=== PATIENT | female | born 1990 | race Asian ===

== ENCOUNTER 2023-01-10 16:34 | Inpatient (IN) | payer OTHER, MEDICAID ==
[~2023-01-10 16:34] MED LIST: Bupivacaine 0.25% HCL 30 ML VIAL ONE; Terbutaline Sulfate 1 MG/ML VIAL ONE
[2023-01-10] MEDS ORDERED: hydrALAZINE 20 MG/ML VIAL SLOW IVP PRN (17:03)
[2023-01-10] MEDS ORDERED: NS w/ Oxytocin 30 units 500 ML IV SCH (17:15)
[2023-01-10] MEDS ORDERED: HumaLOG 300 UNITS/3 ML VIAL SC SCH (20:30)
[2023-01-10 20:50] LABS: Hemoglobin 13.3 g/dL (12.0-15.5); Mean Corpuscular Hemoglobin 30.9 pg (27.0-33.0); Mean Corpuscular Volume 90.9 fl (81.6-98.3); Mean Platelet Volume 10.4 fl (7.4-10.4); Platelet Count 229 10x3/uL (150-450); RBC Distribution Width 12.5 % (11.5-14.5); White Blood Cell (WBC) Count 10.4 10x3/uL (3.5-10.5)
[2023-01-10 21:25] LABS: HBSAg Index 0.12 S/CO (0-0.99); Hep B Surf Ag Non-Reactive S/CO (NonReactive)
[2023-01-10 21:26] LABS: Syphilis Antibody Nonreactive (Nonreactive); Syphilis Antibody Index 0.04 S/CO (<1.00 Non-Reactive)
[2023-01-10] MEDS ORDERED: Lantus 1000 UNITS/10 ML VIAL SC SCH (23:00)
[2023-01-11] MEDS ORDERED: Moisturizing Cream (Eucerin) 113 GM JAR TOP PRN ×2 (11:41→16:21)
[2023-01-11] MEDS ORDERED: Ondansetron PF 4 MG/2 ML Vial IVP PRN ×3 (11:41→18:19)
[2023-01-11] MEDS ORDERED: Acetaminophen 325 MG TAB PO PRN (11:41)
[2023-01-11] MEDS ORDERED: Naloxone HCl 0.4 mg/ml Vial IVP PRN ×4 (11:41→16:21)
[2023-01-11] MEDS ORDERED: ePHEDrine Sulfate 50 MG/10 ML VIAL SLOW IVP PRN (11:41)
[2023-01-11] MEDS ORDERED: Lactated Ringer's 500 ML IV PRN (11:41)
[2023-01-11] MEDS ORDERED: Promethazine HCl 25 MG/ML VIAL IM PRN ×2 (11:41→16:21)
[2023-01-11] MEDS ORDERED: diphenhydrAMINE 50 MG/ML VIAL IVP PRN ×2 (11:41→16:21)
[2023-01-11] MEDS ORDERED: Fentanyl 2 mcg/Bupivacaine 0.1% Cassette 100 ML EPIDURAL SCH (11:45)
[2023-01-11] MEDS ORDERED: Communication Order-Pharmacy FS SCH ×2 (11:45→16:30)
[2023-01-11] MEDS ORDERED: Terbutaline Sulfate 1 MG/ML VIAL SC SCH (12:00)
[2023-01-11] MEDS ORDERED: Fentanyl 2 mcg/Bup 0.1% Cadd 100 ML ONE (12:48)
[2023-01-11 13:37] VITALS: BMI 27.6
[2023-01-11] MEDS ORDERED: Mineral Oil ENEMA PR SCH (14:00)
[2023-01-11] MEDS ORDERED: CEFAZOLIN 2 GM VIAL ONE (14:10)
[2023-01-11] MEDS ORDERED: Misoprostol 200 MCG TAB ONE (14:33)
[2023-01-11] MEDS ORDERED: PHENYLEPHRINE-NS 100 MCG/ML 10 ML SYRINGE ONE (14:33)
[2023-01-11] MEDS ORDERED: Carboprost 250 MCG/ML AMP ONE (14:33)
[2023-01-11] MEDS ORDERED: Oxytocin 10 UNITS/ML VIAL ONE ×2 (14:33→16:11)
[2023-01-11] MEDS ORDERED: ePHEDrine Sulfate 50 MG/10 ML VIAL ONE (14:33)
[2023-01-11] MEDS ORDERED: Ondansetron PF 4 MG/2 ML Vial ONE (14:33)
[2023-01-11] MEDS ORDERED: Ketorolac Tromethamine 30 MG/ML VIAL ONE (14:34)
[2023-01-11] MEDS ORDERED: Methylergonovine 0.2 MG/ML VIAL ONE (14:34)
[2023-01-11] MEDS ORDERED: Lidocaine 2% MPF 10 ML AMP (For Epidural Use) ONE (14:34)
[2023-01-11] MEDS ORDERED: Famotidine/PF 20 mg/2ml Vial SLOW IVP PRN (14:36)
[2023-01-11] MEDS ORDERED: Bicitra 30 ML UDCUP PO PRN (14:36)
[2023-01-11] MEDS ORDERED: CEFAZOLIN 2 GM in Sodium Chloride 0.9% 100 ML IVPB SCH (14:45)
[2023-01-11] MEDS ORDERED: Phenylephrine 40 MG/NS 250 ML 250 ML ONE (14:57)
[2023-01-11] MEDS ORDERED: Morphine PF 10 MG/10 ML VIAL ONE (15:13)
[2023-01-11] MEDS ORDERED: Fentanyl 100 MCG/2 ML VIAL ONE (15:13)
[2023-01-11] MEDS ORDERED: Promethazine HCl 25 MG/ML VIAL ONE (15:18)
[2023-01-11] MEDS ORDERED: Dexamethasone 4 mg/ml Vial ONE (15:18)
[2023-01-11] MEDS ORDERED: L&D-Morphine 4 MG/ML VIAL SLOW IVP PRN (16:21)
[2023-01-11] MEDS ORDERED: Ondansetron HCl/PF 4 MG/2 ML Vial IVP PRN (16:21)
[2023-01-11] MEDS ORDERED: Naloxone HCl 0.4 mg/ml Vial IV PRN (16:21)
[2023-01-11] MEDS ORDERED: Meperidine HCl/PF 25 MG/ML VIAL SLOW IVP PRN (16:21)
[2023-01-11] MEDS ORDERED: Promethazine HCl 25 MG SUPP PR PRN (16:21)
[2023-01-11] MEDS ORDERED: Fentanyl 100 MCG/2 ML VIAL SLOW IVP PRN (16:21)
[2023-01-11] MEDS ORDERED: Ketorolac Tromethamine 30 MG/ML VIAL IVP SCH (16:30)
[2023-01-11] MEDS ORDERED: diphenhydrAMINE 25 MG CAP PO PRN (18:19)
[2023-01-11] MEDS ORDERED: hydrALAZINE 20 MG/ML VIAL SLOW IVP PRN (18:19)
[2023-01-11] MEDS ORDERED: Dextrose 5% in Water 1,000 ML IV PRN (18:19)
[2023-01-11] MEDS ORDERED: Lanolin Ointment 7 GM TUBE TOP PRN (18:19)
[2023-01-11] MEDS ORDERED: Dextrose 50% Abboject 50 ML SYRINGE SLOW IVP PRN (18:19)
[2023-01-11] MEDS ORDERED: HumaLOG 300 UNITS/3 ML VIAL SC PRN ×2 (18:19)
[2023-01-11] MEDS ORDERED: Boostrix 0.5 ML (Tdap) VIAL (>/=7 yrs of age) IM ONE (18:19)
[2023-01-11] MEDS: Docusate 100 MG CAP PO SCH (20:59)
[2023-01-11] MEDS: Ferrous Sulfate 325 MG TAB PO SCH (20:59)
[2023-01-12 04:31] LABS: Hemoglobin 11.5 g/dL (12.0-15.5); Mean Corpuscular HGB CONC 33.6 g/dL (32.0-36.0); Mean Corpuscular Hemoglobin 31.1 pg (27.0-33.0); Mean Corpuscular Volume 92.4 fl (81.6-98.3); Mean Platelet Volume 10.7 fl (7.4-10.4); Platelet Count 205 10x3/uL (150-450); RBC Distribution Width 12.1 % (11.5-14.5); White Blood Cell (WBC) Count 15.4 10x3/uL (3.5-10.5)
[2023-01-12] MEDS: Ketorolac Tromethamine 30 MG/ML VIAL IVP PRN ×2 (06:12→13:33)
[2023-01-12] MEDS: Ferrous Sulfate 325 MG TAB PO SCH ×2 (08:40→21:45)
[2023-01-12] MEDS: Prenatal Vitamin 1 TAB PO SCH (08:42)
[2023-01-12] MEDS: Docusate 100 MG CAP PO SCH ×2 (08:42→21:12)
[2023-01-12] MEDS: HYDROcodone/Acetaminophen 5/325 mg Tablet PO PRN ×3 (12:31→22:38)
[2023-01-12] MEDS: Ibuprofen 800 MG TAB PO SCH (21:12)
[2023-01-13] MEDS: HYDROcodone/Acetaminophen 5/325 mg Tablet PO PRN ×5 (04:28→22:35)
[2023-01-13] MEDS: Ibuprofen 800 MG TAB PO SCH ×3 (06:01→21:09)
[2023-01-13] MEDS: Prenatal Vitamin 1 TAB PO SCH (09:03)
[2023-01-13] MEDS: Simethicone Chewable 80 MG TAB PO PRN ×3 (09:04→21:09)
[2023-01-13] MEDS: Docusate 100 MG CAP PO SCH ×2 (09:04→21:09)
[2023-01-13] MEDS: Ferrous Sulfate 325 MG TAB PO SCH ×2 (09:09→21:11)
[2023-01-13] MEDS ORDERED: Polyethylene Glycol 3350 17 GM Packet PO SCH (12:30)
[2023-01-14] MEDS: HYDROcodone/Acetaminophen 5/325 mg Tablet PO PRN ×3 (04:51→14:22)
[2023-01-14] MEDS: Ibuprofen 800 MG TAB PO SCH ×2 (05:49→14:22)
[2023-01-14 07:56] VITALS: BP 131/81; TEMP 97.7
[2023-01-14] MEDS ORDERED: Polyethylene Glycol 3350 17 GM Packet PO SCH (08:00)
[2023-01-14] MEDS: Ferrous Sulfate 325 MG TAB PO SCH (09:31)
[2023-01-14] MEDS: Docusate 100 MG CAP PO SCH (09:34)
[2023-01-14] MEDS: Prenatal Vitamin 1 TAB PO SCH (09:34)
[2023-01-14] MEDS: Simethicone Chewable 80 MG TAB PO PRN (09:34)
== END 2023-01-14 15:10 | disposition home or self-care (01) | DRG 788 ==
LOC: CSHANTE 16:34 → CSHLD 01-11 11:48 → CSHPP 01-11 18:30
PROVIDERS: ADMIT Student in an Organized Health Care Education/Training Program; ATTEND Student in an Organized Health Care Education/Training Program
PROC: 10D00Z1 Extraction of Products of Conception, Low, Open Approach (ICD-10-PCS; principal; 2023-01-11)
PROC: 10S0XZZ Reposition Products of Conception, External Approach (ICD-10-PCS; 2023-01-11)
PROC: 3E0P7VZ Introduction of Hormone into Female Reproductive, Via Natural or Artificial Opening (ICD-10-PCS; 2023-01-11)
DX: O24.420 Gestational diabetes mellitus in childbirth, diet controlled (principal); O32.1XX0 Maternal care for breech presentation, not applicable or unspecified; Z3A.37 37 weeks gestation of pregnancy; Z37.0 Single live birth; O99.824 Streptococcus B carrier state complicating childbirth; K59.00 Constipation, unspecified; O99.63 Diseases of the digestive system complicating the puerperium
CPT/HCPCS: 36415; 36416; 51702; 59025; 85027; 86780; 86850; 86900; 86901; 87340; J1100; J1200; J1815; J1885; J2274; J2405; J2550; J2590; J3010; J3105; S0020